=== PATIENT | male | born 1950 | race Caucasian/White ===

== ENCOUNTER → 2022-04-16 | Outpatient (CLI) | payer MEDICARE, OTHER, SELFPAY ==
--- NOTE | 2022-04-16 07:45 | CT_ITS ---
EXAM: CT NECK WITH INTRAVENOUS CONTRAST CLINICAL INDICATION: LARYNGEAL MASS TECHNIQUE: Helically acquired images were obtained of the neck with intravenous contrast. This CT exam was performed using one or more of the following dose reduction techniques: automated exposure control, adjustment of the mA and/or kV according to patient size, and/or use of iterative reconstruction technique. This report was created using [email or web address] report generation technology. CONTRAST: IV 100mL Isovue-300 COMPARISON: None. FINDINGS: NASOPHARYNX: Normal. SUPRAHYOID NECK: Normal. Oropharynx, oral cavity, parapharyngeal space and retropharyngeal space are unremarkable. INFRAHYOID NECK: Normal. The larynx, hypopharynx and supraglottis are unremarkable. SUBMANDIBULAR/PAROTID GLANDS: Normal. Glands are normal in size. THYROID: Normal. No enlarged or calcified nodules. BONES/JOINTS: No acute fracture. SOFT TISSUES: Normal. VASCULATURE: No acute findings. LYMPH NODES: Normal. No lymphadenopathy. LUNG APICES: Unremarkable as visualized. CT/Soft Tissue Neck WITH Contrast IMPRESSION: Normal neck CT. No evidence of a laryngeal mass. Electronically Signed: Bob Macario MD at 14:44 EDT ,
[2022-04-16 08:20] LABS: EGFR FINGERSTICK > 60.0000 mL/min (>60)
== END | disposition home or self-care (01) ==
LOC: CT 07:41
PROVIDERS: PCP Internal Medicine; Referring Provider Otolaryngology; Visit Provider Otolaryngology
DX: R22.1 Localized swelling, mass and lump, neck (principal)
CPT/HCPCS: 70491; Q9967